=== PATIENT | male | born 1990 | race Caucasian/White ===

== ENCOUNTER 2017-03-28 19:24 | Emergency (ER) | payer OTHER ==
[~2017-03-28] VITALS: Ht 185.4 cm; Wt 77.8 kg
[2017-03-28 19:34] VITALS: TEMP 36.7; Ht 185.4 cm; Wt 77.8 kg
[2017-03-28] MEDS ORDERED: DOXYCYCLINE HYCLATE 100 MG CAP PO ONE (21:30)
[2017-03-28] MEDS ORDERED: EMPTY 8 DRAM VIAL ONE (21:45)
[2017-03-28] MEDS ORDERED: DOXY100C76 PO (22:24)
[2017-03-28 22:31] VITALS: BP 136/83; PULSE 81; O2SAT 98
--- NOTE | 2017-03-29 00:56 | EMERGENCY ROOM VISIT NOTE ---
History Report prepared by Latasha: Colton Plunkett Under the Supervision of: Dr. Hero Jain M.D. First contact with patient: 20:51 Chief Complaint: ILLNESS Stated Complaint: TICK BITE, FATIGUE, MUSCLE SPASMS History of Present Illness The patient is a 26 year old male who presents to the Emergency Room with complaints of worsening ring-like rash on the lower left leg beginning one day prior to arrival. He currently rates his discomfort as a 3/10 in severity. The patient associates weakness, fatigue, muscle aches, muscle spasms, and mental fogginess that all began two days ago with today's symptoms. He states he noticed he was bitten by two ticks this week, in which, his most recent tick bite developed a rash. The patient believes both ticks were on for less than 24 hours. He notes they both appeared to be normal size, but he may have squished the most recent tick upon removal two days ago. The patient denies a rash at the site of the first tick bite. He states he has dogs, as well. Pt denies LOC, headache, fevers, chills, diaphoresis, visual changes, neck pain, chest pain, breathing difficulties, nausea, vomiting, abdominal pain, back pain, melena, hematochezia, urinary symptoms, numbness, lymphadenopathy, or other complaints. Source of History: patient Onset: one day VEGETABLE SCULLION Position: leg (left) Symptom Intensity: 3/10 Quality: other (ring-like rash) Timing: worsening Associated Symptoms: + fatigue, + rash, + weakness Note: Associated symptoms: muscle aches, muscle spasms, mental fogginess Review of Systems See HPI for pertinent positives and negatives. A total of ten systems were reviewed and were otherwise negative. Past Medical & Surgical Medical Problems: (1) Hernia Surgical Problems: (1) S/P hernia repair Family History Patient reports no known family medical history. Social History Smoking Status: Current Every Day Smoker Marital Status: in relationship Housing Status: lives with significant other Current/Historical Medications Scheduled Doxycycline Monohydrate (Monodox), 100 MG PO BID Allergies Coded Allergies: Amoxicillin (Verified Allergy, Unknown, unsure, 03/28/17) Doxycycline (Verified Adverse Reaction, Unknown, nausea, 03/28/17) Physical Exam Vital Signs Date Time Temp Pulse Resp B/P Pulse Ox O2 Delivery O2 Flow Rate FiO2 03/28/17 22:31 81 16 136/83 98 Room Air 03/28/17 19:34 36.7 76 18 148/87 100 Room Air Physical Exam GENERAL: Awake, alert, well-appearing, in no distress HENT: Normocephalic, atraumatic. Oropharynx unremarkable. EYES: Normal conjunctiva. Sclera non-icteric. NECK: Supple. No nuchal rigidity. FROM. No JVD. RESPIRATORY: Clear to auscultation. CARDIAC: Regular rate, normal rhythm. Extremities warm and well perfused. Pulses equal. ABDOMEN: Soft, non-distended. No tenderness to palpation. No rebound or guarding. No masses. RECTAL: Deferred. MUSCULOSKELETAL: Chest examination reveals no tenderness. The back is symmetrical on inspection without obvious abnormality. There is no CVA tenderness to palpation. No joint edema. LOWER EXTREMITIES: Calves are equal size bilaterally and non-tender. No edema. No discoloration. NEURO: Normal sensorium. No sensory or motor deficits noted. SKIN: Round, red ring-like rash on left proximal lower leg lateral aspect. No jaundice noted. Medical Decision & Procedures Medications Administered Medications (Trade) Dose Ordered Sig/Celia Route Start Time Stop Time Status Last Admin Dose Admin Doxycycline Hyclate (Vibramycin Cap) 200 mg ONE ONCE PO 03/28/17 21:30 03/28/17 21:31 DC 03/28/17 21:41 200 MG ED Course 2057: The patient was evaluated in room B6. A complete history and physical exam was performed. 2129: Ordered Vibramycin Cap 200 mg PO. 2131: I reevaluated the patient, and he had no problem with his medication. Discussed results and discharge instructions: He verbalized understanding and agreement. The patient is ready for discharge. Medical Decision The patient presented to the emergency department after having a tick bite. There is a growing erythematous ringlike rash in the area of the bite site. It is possible that this is early Lyme disease. The patient notes general fatigue. He also feels shaky and getting occasional muscle spasms. His physical examination did not reveal any other findings. Clinically he looks well. Differential includes Lyme disease, cellulitis, local reaction, neurologic, as well as others. I discussed conservative management with the patient. I would recommend treatment for Lyme disease given the significant high incidence, multiple tick bites, and this growing ringlike rash. This could easily develop into erythema migrans. I discussed treating versus doing blood tests as his symptoms have been present for only a short period and there may be a false negative because of this. As the patient is doing well he felt this was reasonable. He was comfortable with deferring blood work. The patient was given primary care referral information. A prescription was sent for treatment with doxycycline. The patient had an allergy noted to doxycycline but this was GI upset after he took it on an empty stomach. This is more of an adverse reaction. The patient had some food in the emergency department and took his doxycycline without difficulty. He had no allergic like symptoms. The patient worsens in any way he will be back to emergency department for reevaluation. I gave my usual and customary discussion regarding this issue. Impression Primary Impression: Lyme disease Additional Impression: Tick bite Scribe Attestation The scribe's documentation has been prepared under my direction and personally reviewed by me in its entirety. I confirm that the note above accurately reflects all work, treatment, procedures, and medical decision making performed by me. Departure Information Dispostion Home / Self-Care Prescriptions Doxycycline Monohydrate (Monodox) 100 Mg Cap 100 MG PO BID for 20 Days, #40 CAP Prov: Hero Jain MD 03/28/17 Referrals No Doctor, Assigned (PCP) Forms HOME CARE DOCUMENTATION FORM, IMPORTANT VISIT INFORMATION, WORK / SCHOOL INSTRUCTIONS Patient Instructions My [facility] Additional Instructions Doxycycline 100mg: Take one pill twice daily for 21 days. Take with food, but avoid dairy. Avoid prolonged sun exposure since this medication makes you temporarily more susceptible to sunburns. All antibiotics can cause diarrhea. If this occurs and you feel worse or it does not resolve in 1-2 days follow up with your doctor or return to the Emergency Department as this could be signs of serious underlying problems. Any medication can cause an allergic reaction, stop the pills immediately and return to the ER for rash, hives, breathing difficulties, or swelling. Ibuprofen(Motrin, Advil) may be used for fever or pain. Use 600mg every six hours as needed. Take with food. Avoid using more than 2400mg in a 24 hour period. Do not use 2400mg per day for more than three consecutive days without physician direction. Prolonged inappropriate use can lead to stomach upset or ulcers. And/or Tylenol: Take 1000 mg every 6 hours as needed for pain. Do not take more than 3000 mg in a 24 hour period. Return to the ER immediately for severe headache, passing out, vomiting, spreading redness, fevers, pus-like drainage, severe pain, or as needed. Call the [facility] at [phone] to arrange for a family doctor follow up tell them you were in the ER and we referred you. Problem Qualifiers
== END 2017-03-28 22:32 | disposition home or self-care (01) ==
LOC: C.EDB 19:27
DX: A69.20 Lyme disease, unspecified (principal); S80.862A Insect bite (nonvenomous), left lower leg, initial encounter; W57.XXXA Bitten or stung by nonvenomous insect and other nonvenomous arthropods, initial encounter; F17.210 Nicotine dependence, cigarettes, uncomplicated

== ENCOUNTER 2017-11-29 21:55 | Emergency (ER) | payer OTHER ==
[~2017-11-29] VITALS: Ht 182.9 cm; Wt 79.5 kg
[2017-11-29 21:58] VITALS: TEMP 36.6; Ht 182.9 cm; Wt 79.5 kg
--- NOTE | 2017-11-29 22:18 | EMERGENCY ROOM VISIT NOTE ---
History Report prepared by Latasha: Carl Johnson Under the Supervision of: Dr. Elio Emmanuel M.D. First contact with patient: 22:04 Chief Complaint: LEG PAIN,LEG INJURY Stated Complaint: BURNING COLD/NUMBNESS IN LEG/MUSCLE SPASMS ACROSS History of Present Illness The patient is a 27 year old male who presents to the Emergency Room with complaints of intermittent numbness and spasms in his thigh that began a half an hour ago. He is present in the ED with his fiance. Patient states the symptoms have resolved since coming to the ED. He describes associated symptoms of pain as feeling "like he has a pair of lungs in his leg that are breathing". He states the pain was a "burning then cooling, numbing sensation". He has additional symptoms of intermittent finger spasms. He states he has had the spasm episodes intermittently for a year, with them lasting all day when they occur. He denies drinking alcohol and any drug use. He states he used to smoke cigarettes but now vapes. He denies fevers, chills, nausea, vomiting, headaches , and dizziness. Patient states that he has seen his PCP 3 times since the symptoms have occurred. He states that his PCP did not advise him on what was the cause of his spasms. His PCP advised him to stop drinking soda, which the patient did without relieving the symptoms. He adds that his PCP prescribed him a muscle relaxer that did not relieve the symptoms. Patient adds that he was bitten by a tick previously and was tested for Lyme disease. He states that the test was negative. Patient states he is not currently employed. 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 Source of History: patient Onset: Hour and a half ago Position: other (Thigh) Timing: intermittent Associated Symptoms: No fevers, No chills, No headache, No nausea, No vomiting Note: Patient denies dizziness. Review of Systems See HPI for pertinent positives and negatives. A total of ten systems were reviewed and were otherwise negative. Past Medical & Surgical Medical Problems: (1) Hernia Surgical Problems: (1) S/P hernia repair Family History Patient reports no known family medical history. No pertinent family medical history. Social History Smoking Status: Current Every Day Smoker Marital Status: in relationship Housing Status: lives with significant other Current/Historical Medications Scheduled Multivitamin (Multivitamin), 1 TAB PO 2XWK Allergies Coded Allergies: Amoxicillin (Verified Allergy, Unknown, unsure, 11/29/17) Physical Exam Vital Signs Date Time Temp Pulse Resp B/P (MAP) Pulse Ox O2 Delivery O2 Flow Rate FiO2 11/30/17 00:22 66 18 139/85 99 Room Air 11/29/17 23:30 80 19 117/85 99 Room Air 11/29/17 21:58 36.6 99 20 136/100 98 Room Air Physical Exam GENERAL: Awake, alert, well-appearing, in no distress HENT: Normocephalic, atraumatic. Oropharynx unremarkable. EYES: Normal conjunctiva. Sclera non-icteric. NECK: Supple. No nuchal rigidity. FROM. No JVD. RESPIRATORY: Clear to auscultation. CARDIAC: Regular rate, normal rhythm. Extremities warm and well perfused. Pulses equal. ABDOMEN: Soft, non-distended. No tenderness to palpation. No rebound or guarding. No masses. RECTAL: Deferred. MUSCULOSKELETAL: Chest examination reveals no tenderness. The back is symmetrical on inspection without obvious abnormality. There is no CVA tenderness to palpation. No joint edema. LOWER EXTREMITIES: Calves are equal size bilaterally and non-tender. No edema. No discoloration. NEURO: Normal sensorium. No sensory or motor deficits noted. SKIN: No rash or jaundice noted. Medical Decision & Procedures Laboratory Results 11/29/17 22:35 Red Blood Count 4.84, Mean Corpuscular Volume 89.0, Mean Corpuscular Hemoglobin 32.6, Mean Corpuscular Hemoglobin Concent 36.7, Mean Platelet Volume 10.6, Neutrophils (%) (Auto) 51.8, Lymphocytes (%) (Auto) 36.1, Monocytes (%) (Auto) 9.9, Eosinophils (%) (Auto) 1.8, Basophils (%) (Auto) 0.2, Neutrophils # (Auto) 4.22, Lymphocytes # (Auto) 2.95, Monocytes # (Auto) 0.81, Eosinophils # (Auto) 0.15, Basophils # (Auto) 0.02 11/29/17 22:35 Test 11/29/17 22:35 White Blood Count 8.17 K/uL (4.8-10.8) Red Blood Count 4.84 M/uL (4.7-6.1) Hemoglobin 15.8 g/dL (14.0-18.0) Hematocrit 43.1 % (42-52) Mean Corpuscular Volume 89.0 fL (80-100) Mean Corpuscular Hemoglobin 32.6 pg (25-34) Mean Corpuscular Hemoglobin Concent 36.7 g/dl (32-36) Platelet Count 248 K/uL (130-400) Mean Platelet Volume 10.6 fL (7.4-10.4) Neutrophils (%) (Auto) 51.8 % Lymphocytes (%) (Auto) 36.1 % Monocytes (%) (Auto) 9.9 % Eosinophils (%) (Auto) 1.8 % Basophils (%) (Auto) 0.2 % Neutrophils # (Auto) 4.22 K/uL (1.4-6.5) Lymphocytes # (Auto) 2.95 K/uL (1.2-3.4) Monocytes # (Auto) 0.81 K/uL (0.11-0.59) Eosinophils # (Auto) 0.15 K/uL (0-0.5) Basophils # (Auto) 0.02 K/uL (0-0.2) RDW Standard Deviation 39.1 fL (36.4-46.3) RDW Coefficient of Variation 12.1 % (11.5-14.5) Immature Granulocyte % (Auto) 0.2 % Immature Granulocyte # (Auto) 0.02 K/uL (0.00-0.02) Toxic Vacuolation 1+ Anion Gap 8.0 mmol/L (3-11) Est Creatinine Clear Calc Drug Dose 108.8 ml/min Estimated GFR () 103.8 Estimated GFR (Non- 89.5 BUN/Creatinine Ratio 13.4 (10-20) Calcium Level 8.9 mg/dl (8.5-10.1) Phosphorus Level 3.8 mg/dl (2.5-4.9) Magnesium Level 2.1 mg/dl (1.8-2.4) Total Creatine Kinase 71 U/L (39-308) Lyme Disease IgG Antibody NEG (NEG) Lyme Disease IgM Antibody NEG (NEG) Laboratory results reviewed by me ED Course 2205: The patient was evaluated in room A4. A complete history and physical exam was performed. 0023: I reevaluated the patient. Discussed results and discharge instructions. He verbalized understanding and agreement. The patient is ready for discharge. Medical Decision I reviewed the patient's past medical history, medications, and the nursing notes as described above. 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 On arrival the patient is well-appearing, in NAD , AFVSS. Neuro intact. No palpable muscle spasm on exam. Labs unremarkable. including wbc and CPK wnl. Lyme screen negative. Will given non-urgent neuro referral for possible EMG testing given patient's prolonged sx. Findings and plan for follow-up reviewed with patient. Patient agreeable and d/c'd per discharge instructions. Medication Reconcilliation Current Medication List: was personally reviewed by me Blood Pressure Screening Patient's blood pressure: Normal blood pressure Blood pressure disposition: Did not require urgent referral Impression Primary Impression: Muscle spasm of left lower extremity Scribe Attestation The scribe's documentation has been prepared under my direction and personally reviewed by me in its entirety. I confirm that the note above accurately reflects all work, treatment, procedures, and medical decision making performed by me. Departure Information Dispostion Home / Self-Care Referrals No Doctor, Assigned (PCP) Juan Luis Tellez M.D. Forms HOME CARE DOCUMENTATION FORM, IMPORTANT VISIT INFORMATION Patient Instructions ED Spasm Muscle, My [facility] Additional Instructions Please follow up with your primary care physician in the next 1-3 days for re- evaluation, you may also call our neurology office, Dr. Tellez, for a follow up for further testing. The cause of your symptoms is unclear at this time. Otherwise, your exam and lab results did not show signs of an emergent condition at this time. Return to the emergency department for worsening symptoms as described in the accompanying instructions.
[2017-11-29] MEDS ORDERED: MULT-506 PO (22:28)
[2017-11-29 23:04] LABS: CALCIUM 8.9 mg/dl (8.5-10.1); CREATININE 1.12 mg/dl (0.60-1.40); POTASSIUM 3.8 mmol/L (3.5-5.1)
[2017-11-29 23:08] LABS: PHOSPHORUS 3.8 mg/dl (2.5-4.9)
[2017-11-29 23:23] LABS: HEMATOCRIT 43.1 % (42-52); HEMOGLOBIN 15.8 g/dL (14.0-18.0); MEAN CORPUSCULAR HEMOGLOBIN 32.6 pg (25-34); MEAN CORPUSCULAR HGB CONC 36.7 g/dl (32-36); MEAN PLATELET VOLUME 10.6 fL (7.4-10.4); PLATELET COUNT 248 K/uL (130-400); RED CELL DISTRIBUTION WIDTH CV 12.1 % (11.5-14.5); RED CELL DISTRIBUTION WIDTH SD 39.1 fL (36.4-46.3); WHITE BLOOD COUNT 8.17 K/uL (4.8-10.8)
[2017-11-29 23:44] LABS: BASO % 0.2 %; BASO ABS # 0.02 K/uL (0-0.2); EOS % 1.8 %; EOS ABS # 0.15 K/uL (0-0.5); IG# 0.02 K/uL (0.00-0.02); LYMPH % 36.1 %; LYMPH ABS # 2.95 K/uL (1.2-3.4); MONO % 9.9 %; MONO ABS # 0.81 K/uL (0.11-0.59); NEUT % 51.8 %; NEUT ABS # 4.22 K/uL (1.4-6.5)
[2017-11-30 00:22] VITALS: BP 139/85; PULSE 66; O2SAT 99
== END 2017-11-30 00:53 | disposition home or self-care (01) ==
LOC: C.EDB 21:56 → C.EDA 11-30 00:53
DX: M62.838 Other muscle spasm (principal); F17.290 Nicotine dependence, other tobacco product, uncomplicated

== ENCOUNTER 2018-04-11 00:01 | Emergency (ER) | payer OTHER ==
[~2018-04-11] VITALS: Ht 182.9 cm; Wt 84.4 kg
[~2018-04-11 00:01] MED LIST: MULT-506 PO
[2018-04-11 00:03] VITALS: TEMP 36.8; Ht 182.9 cm; Wt 84.4 kg
--- NOTE | 2018-04-11 00:29 | EMERGENCY ROOM VISIT NOTE ---
History First contact with patient: 00:12 Chief Complaint: TESTICULAR PAIN Stated Complaint: EXTREME PAIN IN GROIN/TESTICLE Nursing Triage Summary: patient c/o left testicular pain for past week and a half that has been constant and also states he feels a heavy sensation in his groin beside his testicle. patient states he has been lifting alot recently and this pain started when he was bending over and felt a popping sensation to his left testicle and groin. History of Present Illness The patient is a 27 year old male who presents to the Emergency Room with complaints of pain in his left testicle. The patient reports that he has had pain in the left groin and testicle for the past 1.5 weeks. He states initially the pain was dull, but has become sharp over the past 3 days. He does report he had a hernia at age 7 which required surgery. He does state that he had epididymitis a few years ago and these symptoms feel very similar to that. He rates his current discomfort a 10/10. He does admit that he has been lifting heavy weights recently. He denies fevers, penile discharge, urinary symptoms, abdominal pain or back pain. He does not believe that he is at risk for STI. Review of Systems A complete 10 point review of systems was reviewed with the patient with pertinent positives and negatives as per history of present illness. All else were negative. Past Medical/Surgical History Medical Problems: (1) Hernia Surgical Problems: (1) S/P hernia repair Family History Patient reports no known family medical history. Social History Smoking Status: Former Smoker Marital Status: in relationship Housing Status: lives with significant other Current/Historical Medications Scheduled Doxycycline Hyclate (Vibramycin), 100 MG PO BID Multivitamin (Multivitamin), 1 TAB PO 2XWK Physical Exam Vital Signs Date Time Temp Pulse Resp B/P (MAP) Pulse Ox O2 Delivery O2 Flow Rate FiO2 04/11/18 03:56 80 20 118/72 98 Room Air 04/11/18 01:45 75 18 117/82 98 Room Air 04/11/18 00:03 36.8 74 20 143/89 99 Room Air Physical Exam VITALS: Vitals are noted on the nurse's note and reviewed by myself. Vital signs stable. GENERAL: This is a 27-year-old male, in no acute distress, nondiaphoretic, well- developed well-nourished.JVD. HEART: Regular rate and rhythm without murmurs gallops or rubs. LUNGS: Clear to auscultation bilaterally without wheezes, rales or rhonchi. ABDOMEN: Positive bowel sounds x 4. Soft, nontender to palpation. GENITOURINARY: No obvious swelling or erythema of the scrotum. No lesions noted. There is tenderness to palpation to the left testicle. No palpable masses. NEURO: Patient was alert and oriented to person place and time. Medical Decision & Procedures ER Provider Diagnostic Interpretation: US SCROTAL: Testicles are normal in size and echogenicity. There is normal flow to bilateral testicles. The epididymi are unremarkable. Bilateral testicular microlithiasis is noted. US OTHER - HERNIA: A small left inguinal hernia appears to be present. There is no definite evidence for bowel content within the hernia. Radiologist: Hernan Westbrook MD Laboratory Results Test 04/11/18 00:15 Urine Color DK YELLOW Urine Appearance CLEAR (CLEAR) Urine pH 5.5 (4.5-7.5) Urine Specific [place] 1.035 (1.000-1.030) Urine Protein NEG (NEG) Urine Glucose (UA) NEG (NEG) Urine Ketones TRACE (NEG) Urine Occult Blood NEG (NEG) Urine Nitrite NEG (NEG) Urine Bilirubin NEG (NEG) Urine Urobilinogen NEG (NEG) Urine Leukocyte Esterase NEG (NEG) Medications Administered Medications (Trade) Dose Ordered Sig/Celia Route Start Time Stop Time Status Last Admin Dose Admin Ceftriaxone Sodium (Rocephin Im) 1,000 mg NOW ONCE IM 04/11/18 03:45 04/11/18 03:46 DC 04/11/18 03:57 1,000 MG Doxycycline Hyclate (Vibramycin Cap) 100 mg NOW STAT PO 04/11/18 03:37 04/11/18 03:38 DC 04/11/18 03:57 100 MG ED Course The patient was evaluated as above. Testicular exam was performed with a male nurse gear shaper set up operator. Ultrasounds were performed and read by tanjarad as above. I discussed the ultrasound with the paint technician. Patient was reevaluated and findings were discussed. He was given 1 gm Rocephin IM and 100 mg Doxycycline by mouth. Discharge instructions were reviewed with the patient. The patient verbalized understanding of my assessment and treatment plan and was discharged home in good condition. Medical Decision Differential diagnosis includes epididymitis, orchitis, UTI, STI, strangulated hernia, among others. The patient is a 27-year-old male who presents today complaining of testicular pain. Urinalysis not suggestive of infection. Patient is not concerned for STI. Ultrasound of the testicles was performed and shows no acute findings. Additionally, ultrasound was obtained to evaluate for hernia. This showed a small inguinal hernia which contains fat and no bowel. I did clarify with the paint technician that the hernia was only in the inguinal canal and did not extend into the testicle. I do not believe this is causing the patient's pain, but he was referred to his PCP/general surgery for further evaluation of this as desired. The patient reports severe pain and states this is exactly like previous episodes of epididymitis. While the ultrasound did not show evidence of epididymitis, I did think it was reasonable to treat him empirically for this. He was given Rocephin and doxycycline here. He was advised to follow-up with his primary care provider for a recheck this week. The patient's case was reviewed with Dr. Lloyd, ED attending physician, who agreed with my assessment and treatment plan. Based on the patient's presentation and work up, I feel the patient is stable for outpatient treatment. The patient was educated to return to the emergency department for any worsening of their current condition or new/concerning symptoms. He will follow up with his PCP. Medication Reconcilliation Current Medication List: was personally reviewed by me Blood Pressure Screening Patient's blood pressure: Normal blood pressure Impression Primary Impression: Testicular pain, left Departure Information Dispostion Home / Self-Care Condition GOOD Prescriptions Doxycycline Hyclate (VIBRAMYCIN) 100 Mg Cap 100 MG PO BID for 10 Days, #19 CAP Prov: Eula Blanca ., ARANZA 04/11/18 Referrals No Doctor, Assigned (PCP) Patient Instructions My [facility] Additional Instructions You were prescribed doxycycline to be taken twice a day for a total of 10 days. This is an antibiotic. All antibiotics have the potential to cause diarrhea. Stop this medication and contact a medical provider if you were to develop any significant adverse side effects including: wheezing, shortness of breath, passing out, vomiting, or a diffuse rash. Always take antibiotics as directed and COMPLETE the ENTIRE course regardless of the improvement of your symptoms. For pain control, you can use the following [id number] medicines (if >12 yo): - Regular strength (325mg/tab) Tylenol (acetaminophen) 2 tabs every 4-6 hours as needed. Do not exceed 12 tablets in a 24 hour period. Avoid taking more than 4 grams (4000 mg) of Tylenol per day. This includes any other sources of acetaminophen you may take on a regular basis. - Regular strength (200 mg/tab) Advil (ibuprofen) 1-2 tabs every 4-6 hours as needed. Do not exceed a dose of 3200 mg per day. Follow-up with your primary care provider. You do have a hernia which may need to be evaluated/repaired.
[2018-04-11] MEDS ORDERED: DOXYCYCLINE HYCLATE 100 MG CAP PO STA (03:37)
[2018-04-11] MEDS ORDERED: CEFTRIAXONE SOD 350MG/ML 1 GM VIAL IM ONE (03:45)
[2018-04-11 03:56] VITALS: BP 118/72; PULSE 80; O2SAT 98
[2018-04-11] MEDS ORDERED: DOXY100C PO (04:00)
--- NOTE | 2018-04-11 05:50 | DIAGNOSTIC IMAGING REPORT ---
ABDOMEN FOR HERNIA HISTORY: 27 years-old Male left groin/testicular pain, eval for hernia acute left groin pain with concern for hernia COMPARISON: None available TECHNIQUE: Multiple real-time sonographic images of the left inguinal tissues were obtained assessing grayscale appearance FINDINGS: There is a small fat filled left inguinal hernia which does not appear to be reducible. No bowel contents identified extending into the hernia sac. IMPRESSION: Small fat filled left inguinal hernia. The above report was generated using voice recognition software. It may contain grammatical, syntax or spelling errors. Electronically signed by: Lance Mukherjee M.D. 04/11/2018 5:49 AM Dictated Date/Time: 04/11/2018 5:47 AM
--- NOTE | 2018-04-11 05:53 | DIAGNOSTIC IMAGING REPORT ---
(TESTICULAR) SCROTUM-CONT CLINICAL HISTORY: 27 years-old Male with left testicular pain, hx epididymitis, hx hernia repair. Acute left-sided testicular pain COMPARISON STUDY: None available TECHNIQUE: Real-time, grayscale, and color Doppler sonography of the testes and scrotum is performed. Images are reviewed in the transverse and longitudinal planes. FINDINGS: RIGHT HEMISCROTUM: The right testis measures 5.2 x 2.3 x 3.1 cm and the parenchyma appears unremarkable with the exception of microlithiasis. No intratesticular mass is seen. Normal-appearing arterial inflow is present within the right testicle. The right epididymal head appears normal. No varicocele or hydrocele is identified. LEFT HEMISCROTUM: The left testis measures 4.8 x 2.2 x 3.0 cm and the parenchyma appears unremarkable with the exception of microlithiasis. No intratesticular mass is seen. Normal-appearing arterial inflow is present within the left testicle. The left epididymal head appears normal. No varicocele or hydrocele is identified. IMPRESSION: Bilateral testicular microlithiasis with otherwise normal appearance of the testicles and epididymides. The above report was generated using voice recognition software. It may contain grammatical, syntax or spelling errors. Electronically signed by: Lance Mukherjee M.D. 04/11/2018 5:51 AM Dictated Date/Time: 04/11/2018 5:49 AM
== END 2018-04-11 04:17 | disposition home or self-care (01) ==
LOC: C.EDB 00:03
DX: N50.812 Left testicular pain (principal); Z87.891 Personal history of nicotine dependence